=== PATIENT | female | born 1945 | race Caucasian/White ===

== ENCOUNTER → 2016-08-30 | Outpatient (REF) | payer MEDICARE ==
[2016-08-31 13:05] LABS: ALBUMIN 3.4 GM/DL (3.2-5.2); ALBUMIN/GLOBULIN RATIO 0.92 (1.00-1.93); ALKALINE PHOSPHATASE 64 U/L (45-117); ALT/SGPT 25 U/L (12-78); ANION GAP 7 MEQ/L (8-16); AST/SGOT 19 U/L (15-37); BILIRUBIN,TOTAL 0.5 MG/DL (0.2-1.0); BLOOD UREA NITROGEN 20 MG/DL (7-18); CARBON DIOXIDE LEVEL 31 MEQ/L (21-32); CHLORIDE LEVEL 104 MEQ/L (98-107); CHOLESTEROL LEVEL 154 MG/DL (<200); CREATININE FOR GFR 0.88 MG/DL (0.55-1.02); FREE T4 1.22 NG/DL (0.76-1.46); GLOMERULAR FILTRATION RATE > 60.0 (>39); GLUCOSE, FASTING 116 MG/DL (83-110); POTASSIUM SERUM 4.6 MEQ/L (3.5-5.1); SODIUM LEVEL 142 MEQ/L (136-145); TOTAL PROTEIN 7.1 GM/DL (6.4-8.2); TRIGLYCERIDES LEVEL 137 MG/DL (<150)
== END ==
LOC: M SFHCADAM 10:46
PROVIDERS: ATTEND Physician Assistant
DX: I10 Essential (primary) hypertension (principal); E03.9 Hypothyroidism, unspecified; E78.4 Other hyperlipidemia; M35.3 Polymyalgia rheumatica
CPT/HCPCS: 80053; 80061; 82306; 84439; 84443; G0463

== ENCOUNTER → 2016-12-06 | Outpatient (CLI) | payer MEDICARE ==
--- NOTE | 2016-12-06 13:17 | REP ---
LUMBOSACRAL SPINE SERIES: Five views of the lumbosacral spine are performed. There is no compression fracture. There is no spondylolysis or spondylolisthesis. There is moderate diffuse spurring. There is mild disc space narrowing at L1-2. There is moderate disc space narrowing with subchondral sclerosis and vacuum phenomenon at L3-4 and L4-5. There is mild narrowing at the L5-S1 disc space. There is sclerosis at the posterior facet joints. The posterior elements are intact. There is mild curvature toward the right. IMPRESSION: Degenerative changes as discussed in detail above. No acute fracture or dislocation. Signed by Tyler Saldivar MD 12/06/2016 04:30 P
--- NOTE | 2016-12-06 13:19 | REP ---
LEFT KNEE SERIES: Five views of the left knee are performed. There is a total knee prosthesis which appears to be in good position. There is no fracture or dislocation. I see no significant abnormal osseous lucency adjacent to the tibial or femoral prostheses. IMPRESSION: Total knee prosthesis. No significant abnormality. Signed by Tyler Saldivar MD 12/06/2016 04:30 P
--- NOTE | 2016-12-06 13:20 | REP ---
RIGHT KNEE SERIES: Five views of the right knee performed. There is no fracture or dislocation. Total knee prosthesis is noted and appears to be in good position. There is no malalignment. There is no abnormal osseous lucency in the distal femur or proximal tibia adjacent to the metallic prosthetic components. IMPRESSION: Right total knee prosthesis with no significant abnormality. Signed by Tyler Saldivar MD 12/06/2016 04:30 P
== END ==
LOC: M ADAMS 11:32
PROVIDERS: ATTEND Physician Assistant Medical
DX: M47.896 Other spondylosis, lumbar region (principal); Z96.652 Presence of left artificial knee joint; Z96.651 Presence of right artificial knee joint

== ENCOUNTER → 2016-12-19 | Outpatient (CLI) | payer MEDICARE ==
[~2016-12-19] MED LIST: GASTROGRAFIN SOLUTION 30ML (Q9963) As Ordered ONE; ISOVUE-370 76% 100ML VIAL (Q9967) As Ordered ONE
[2016-12-19 18:52] LABS: BLOOD UREA NITROGEN 23 MG/DL (7-18); CREATININE FOR GFR 0.93 MG/DL (0.55-1.02); GLOMERULAR FILTRATION RATE > 60.0 (>39)
--- NOTE | 2016-12-19 19:45 | REP ---
CT ABDOMEN AND PELVIS WITH IV CONTRAST: TECHNIQUE: Axial contrast enhanced images from the lung bases to the pubic symphysis using 100 mL Isovue 370 intravenous contrast material with multiplanar reformations. Visualized lung bases demonstrate interstitial fibrotic change. The liver demonstrates no mass. Patient has had a prior cholecystectomy. Spleen, adrenals, and pancreas appear unremarkable. The calcification is seen in the mid right renal collecting system measuring approximately 1 cm in diameter. There is a cyst in the lower pole of the right kidney measuring approximately 5.4 cm in diameter. There is no hydronephrosis bilaterally. There are moderate atherosclerotic calcifications of the abdominal aorta without aneurysm. There is no adenopathy. There is no free air or free fluid. There is sigmoid diverticulosis without acute diverticulitis. Urinary bladder is mildly distended and appears grossly unremarkable. There are degenerative changes of the spine. No anterior abdominal defects are seen. IMPRESSION: Sigmoid diverticulosis without evidence of acute diverticulitis. No free air or free fluid. No hydronephrosis. Intrarenal stone right kidney. No other evidence of acute abnormality. Signed by Tyler Saldivar MD 12/19/2016 08:24 P
== END ==
LOC: M RAD 16:38
PROVIDERS: ATTEND Physician Assistant Medical
DX: R10.32 Left lower quadrant pain (principal); K57.30 Diverticulosis of large intestine without perforation or abscess without bleeding
CPT/HCPCS: 74177; 82565; 84520; Q9963; Q9967

== ENCOUNTER → 2017-03-21 | Outpatient (REF) | payer MEDICARE ==
[~2017-03-21] MED LIST changes: +ATOR1TAB19 PO; +CALC600T31 PO; +FURO40TA2 PO; +GABA-279 PO; -GASTROGRAFIN SOLUTION 30ML (Q9963) As Ordered ONE; -ISOVUE-370 76% 100ML VIAL (Q9967) As Ordered ONE; +LEVO125T4 PO; +LISI10TA4 PO; +MULTCHW14 PO; +PRED1TABL PO; +VITA200015 PO
== END ==
LOC: M SFHCADAM 08:59
PROVIDERS: ATTEND Physician Assistant
DX: R82.99 Other abnormal findings in urine (principal); N20.0 Calculus of kidney
CPT/HCPCS: 81001; 87086; G0463

== ENCOUNTER → 2017-03-27 | Outpatient (CLI) | payer MEDICARE ==
--- NOTE | 2017-03-27 17:24 | REP ---
RENAL ULTRASOUND: Real-time sonographic evaluation of the kidneys is performed. Right kidney measures 12.2 x 6.4 x 5.4 cm and left kidney 12.0 x 6.5 x 5.9 cm. There is bilateral cortical thinning. There is no hydronephrosis. There is a cyst over the lateral aspect of the right kidney measuring 7.3 x 4.9 x 5.8 cm. Calcification is seen in the mid right renal collecting system. There is a subcentimeter cyst of the mid lateral left kidney. IMPRESSION: No hydronephrosis. Dominant cyst lower pole right kidney. Calculus mid right renal collecting system. Small cyst mid left kidney.
== END ==
LOC: M WHC 08:35
PROVIDERS: ATTEND Physician Assistant
DX: N20.0 Calculus of kidney (principal); N28.1 Cyst of kidney, acquired

== ENCOUNTER → 2017-04-25 | Outpatient (CLI) | payer MEDICARE ==
[2017-04-25 11:43] LABS: MEAN CORPUSCULAR HEMOGLOBIN 29.8 pg (27.0-33.0); MEAN CORPUSCULAR HGB CONC 31.3 g/dl (32.0-36.5); MEAN CORPUSCULAR VOLUME 95.3 fl (80.0-96.0); PLATELET COUNT, AUTOMATED 279 10^3/uL (150-450); RED CELL DISTRIBUTION WIDTH 14.9 % (11.5-14.5); WHITE BLOOD COUNT 7.9 10^3/uL (4.0-10.0)
[2017-04-25 11:55] LABS: ANION GAP 3 MEQ/L (8-16); BLOOD UREA NITROGEN 29 MG/DL (7-18); CALCIUM LEVEL 8.8 MG/DL (8.8-10.2); CARBON DIOXIDE LEVEL 34 MEQ/L (21-32); CHLORIDE LEVEL 106 MEQ/L (98-107); CREATININE FOR GFR 0.77 MG/DL (0.55-1.02); GLOMERULAR FILTRATION RATE > 60.0 (>39); GLUCOSE, FASTING 92 MG/DL (83-110); POTASSIUM SERUM 4.6 MEQ/L (3.5-5.1); SODIUM LEVEL 143 MEQ/L (136-145)
[2017-04-25 12:08] LABS: INR 0.9
--- NOTE | 2017-04-25 12:24 | REP ---
PA and lateral chest: Comparison is 10/22/2014. The lung umanzor are clear. The cardiac size is normal The fior, mediastinum, and bony thorax are unremarkable. Impression: Negative PA and lateral chest. There is no interval change. No focal Signed by Tyler Jones MD 04/25/2017 12:15 P
[2017-04-25 14:14] LABS: YEAST LIKE CELL URINE AUTO SMALL
--- NOTE | 2017-04-26 20:48 | ECGEPIP ---
Stationary ECG Study [facility] Test Date: 2017-04-25 Pat Name: DIA IVY Department: Room: - Gender: F Nursing Director: : 1945 Requested By: Ruth PACHECO Order Number: [id number] Reading MD: Joseph Newton Measurements Intervals [place] Rate: 69 P: 59 NC: 170 QRS: 28 QRSD: 102 T: 19 QT: 381 QTc: 410 Interpretive Statements SINUS RHYTHM Normal Electronically Signed On 04-26-2017 20:48:37 EDT by Joseph Newton
== END ==
LOC: M LAB 10:41
PROVIDERS: ATTEND Nurse Practitioner Women's Health
DX: Z01.818 Encounter for other preprocedural examination (principal); N20.0 Calculus of kidney; Z79.52 Long term (current) use of systemic steroids; Z79.82 Long term (current) use of aspirin; Z79.899 Other long term (current) drug therapy
CPT/HCPCS: 36415; 71020; 80048; 81001; 85027; 85610; 85730; 87086; 93005; G0463

== ENCOUNTER 2017-04-27 09:34 | Day surgery (SDC) | payer MEDICARE ==
[~2017-04-27] VITALS: Ht 160 cm; Wt 139.9 kg
[~2017-04-27 09:34] MED LIST changes: +MIDAZOLAM INJ 2 MG/2 ML VIAL (J2250) As Ordered ONE; +fentaNYL 100 MCG/2 ML INJECTION (J3010) As Ordered ONE
--- NOTE | 2017-04-27 10:34 | REP ---
KUB: Two views. HISTORY: Right-sided kidney stone. COMPARISON STUDY: CT abdomen pelvis December 19, 2016. FINDINGS: There are clips in right upper quadrant of the abdomen. The bowel gas pattern is normal. There is a triangular calcific opacity projecting at the upper pole of the right kidney measuring 13 mm in greatest diameter corresponding with the large intrarenal calculus seen on CT from December 19, 2016. No other urinary tract calculus is radiographically visible. IMPRESSION: Large intrarenal calculus upper pole region right kidney 13 mm in size. Signed by Valdo Zamarripa MD 04/27/2017 01:18 P
[2017-04-27] MEDS ORDERED: LR 1,000 ML IV ONE (12:30)
[2017-04-27] MEDS ORDERED: ONDANSETRON 4MG/2ML VIAL (J2405) As Ordered ONE (12:42)
[2017-04-27] MEDS ORDERED: PHENYLephrine HCL 500 MCG/5 ML (100MCG/ML) SYRINGE (J2370) As Ordered ONE (12:46)
[2017-04-27 14:25] VITALS: BP 144/67
--- NOTE | 2017-04-28 16:47 | RO ---
DATE OF PROCEDURE: 04/27/2017 PREPROCEDURE DIAGNOSIS: Right kidney stone. POSTPROCEDURE DIAGNOSIS: Right kidney stone. PROCEDURE: Right extracorporeal shock wave lithotripsy. SURGEON: Vincenzo Newton MD MATH SPECIALIST: None ANESTHESIA: Monitored anesthesia care (MAC). OPERATIVE INDICATIONS: This is a 71-year-old female with an approximately 1.3 cm right kidney stone. Options for treatment were discussed and she elected to undergo the above listed procedure. DESCRIPTION OF PROCEDURE: The patient was brought to the operating room and MAC anesthesia was then administered. Prophylactic antibiotics were infused. She was then placed in supine position in preparation for right-sided extracorporeal shock wave lithotripsy. Fluoroscopy was utilized to monitor stone position and fragmentation throughout the procedure. Shock waves were delivered to the stone , ungated. The stone appeared to fragment well. After 2500 shocks, the procedure was concluded. The patient was then awakened from anesthesia and transported to the recovery room in stable condition. ESTIMATED BLOOD LOSS: 0 mL. COMPLICATIONS: None. SPECIMENS: None. PLAN: The patient will followup in the clinic in a few weeks with imaging prior to assess for residual stone burden. ELSA
== END 2017-04-27 14:25 | disposition home or self-care (01) ==
LOC: M SDC 09:34
PROVIDERS: ATTEND Urology
DX: N20.0 Calculus of kidney (principal); E03.9 Hypothyroidism, unspecified; M35.3 Polymyalgia rheumatica; E78.5 Hyperlipidemia, unspecified; K57.30 Diverticulosis of large intestine without perforation or abscess without bleeding; K44.9 Diaphragmatic hernia without obstruction or gangrene; M12.9 Arthropathy, unspecified; M54.9 Dorsalgia, unspecified; R21 Rash and other nonspecific skin eruption; Z79.899 Other long term (current) drug therapy; Z90.710 Acquired absence of both cervix and uterus; Z96.653 Presence of artificial knee joint, bilateral; Z96.1 Presence of intraocular lens
CPT/HCPCS: 50590; 74000; J0690; J2250; J2370; J2405; J3010

== ENCOUNTER → 2017-05-18 | Outpatient (CLI) | payer MEDICARE ==
[~2017-05-18] MED LIST changes: -MIDAZOLAM INJ 2 MG/2 ML VIAL (J2250) As Ordered ONE; -fentaNYL 100 MCG/2 ML INJECTION (J3010) As Ordered ONE
--- NOTE | 2017-05-18 09:44 | REP ---
Clinical: Nephrolithiasis. Technique: Supine views of the abdomen and pelvis. Comparison: 04/27/2017. Findings: Multiple small right intrarenal calculi are not then identified measuring roughly up to 4 mm diameter. Further evaluation of the urinary tract system is limited by technique and interposed bowel gas. Evidence for prior cholecystectomy noted. Impression: Multiple right intrarenal calculi measuring up to 4 mm again noted. Signed by Mario Greenwood MD 05/18/2017 09:35 A
== END ==
LOC: M SMT 08:16
PROVIDERS: ATTEND Nurse Practitioner Family
DX: N20.0 Calculus of kidney (principal)

== ENCOUNTER → 2017-11-15 | Outpatient (CLI) | payer MEDICARE | LOC: M SMT 09:34 | DX: N20.0 Calculus of kidney (principal) | CPT/HCPCS: 74018; G0463 ==

== ENCOUNTER → 2017-12-19 | Outpatient (CLI) | payer MEDICARE ==
[2017-12-19 15:40] LABS: APPEARANCE, URINE HAZY (CLEAR); BACTERIA, URINE AUTO 1+ (NEGATIVE); BILIRUBIN, URINE AUTO NEGATIVE (NEGATIVE); BLOOD, URINE BLOOD NEGATIVE (NEGATIVE); COLOR, URINE YELLOW (YELLOW); GLUCOSE, URINE (UA) AUTO NEGATIVE (NEGATIVE); KETONE, URINE AUTO NEGATIVE (NEGATIVE); LEUKOCYTE ESTERASE, URINE AUTO NEGATIVE (NEGATIVE); MUCUS, URINE SMALL (NEGATIVE); NITRITE, URINE AUTO NEGATIVE (NEGATIVE); PROTEIN, URINE AUTO NEGATIVE (NEGATIVE); RBC, URINE AUTO 2 /HPF (0-3); SPECIFIC GRAVITY URINE AUTO 1.017 (1.002-1.035); SQUAMOUS EPITHELIAL CELL UR AU 13 /HPF (0-6); UROBILINOGEN, URINE AUTO 0.2 mg/dL (0.0-2.0); WBC, URINE AUTO 4 /HPF (0-3)
[2017-12-19 15:41] LABS: INR 0.91; PROTHROMBIN TIME 12.3 SECONDS (12.4-14.5)
[2017-12-19 15:42] LABS: HEMATOCRIT 44.1 % (36.0-47.0); HEMOGLOBIN 13.8 g/dl (12.0-15.5); MEAN CORPUSCULAR HEMOGLOBIN 29.6 pg (27.0-33.0); MEAN CORPUSCULAR HGB CONC 31.3 g/dl (32.0-36.5); MEAN CORPUSCULAR VOLUME 94.4 fl (80.0-96.0); PARTIAL THROMBOPLASTIN TIME 28.1 SECONDS (26.8-37.9); PLATELET COUNT, AUTOMATED 264 10^3/uL (150-450); RED BLOOD COUNT 4.67 10^6/uL (4.00-5.40); RED CELL DISTRIBUTION WIDTH 15.3 % (11.5-14.5); WHITE BLOOD COUNT 12.4 10^3/uL (4.0-10.0)
[2017-12-19 17:35] LABS: ANION GAP 9 MEQ/L (8-16); BLOOD UREA NITROGEN 24 MG/DL (7-18); CARBON DIOXIDE LEVEL 32 MEQ/L (21-32); CHLORIDE LEVEL 105 MEQ/L (98-107); CREATININE FOR GFR 1.11 MG/DL (0.55-1.30); GLOMERULAR FILTRATION RATE 51.4 (>39); GLUCOSE, FASTING 178 MG/DL (70-100); POTASSIUM SERUM 4.6 MEQ/L (3.5-5.1); SODIUM LEVEL 146 MEQ/L (136-145)
== END ==
LOC: M LAB 14:53
DX: Z01.818 Encounter for other preprocedural examination (principal); N20.0 Calculus of kidney
CPT/HCPCS: 71046

== ENCOUNTER → 2017-12-21 | Outpatient (CLI) | payer MEDICARE | LOC: M LAB 10:31 | DX: N20.0 Calculus of kidney (principal) | CPT/HCPCS: 87086 ==

== ENCOUNTER 2018-01-12 08:42 | Day surgery (SDC) | payer MEDICARE ==
[2018-01-12] MEDS ORDERED: ePHEDrine SULFATE 25 MG/5 ML(5MG/ML) SYRINGE (08:43)
[2018-01-12] MEDS: LR 1,000 ML IV (09:00)
[2018-01-12] MEDS: ceFAZolin SOD 1 GM in D5W MINI-BAG PLUS 50 ML IV (10:13)
[2018-01-12] MEDS ORDERED: MIDAZOLAM INJ 2 MG/2 ML VIAL (J2250) As Ordered (10:32)
[2018-01-12] MEDS ORDERED: ePHEDrine SULFATE 25 MG/5 ML(5MG/ML) SYRINGE As Ordered (10:32)
[2018-01-12] MEDS ORDERED: BUPIVACAINE/DEXTROSE 0.75% 2 ML AMP As Ordered (10:32)
[2018-01-12] MEDS ORDERED: fentaNYL 100 MCG/2 ML INJECTION (J3010) As Ordered (10:32)
[2018-01-12] MEDS ORDERED: PHENYLephrine HCL 500 MCG/5 ML (100MCG/ML) SYRINGE (J2370) As Ordered ×3 (10:32→11:07)
[2018-01-12] MEDS ORDERED: ONDANSETRON 4MG/2ML VIAL (J2405) As Ordered (10:32)
[2018-01-12] MEDS ORDERED: PROPOFOL 200 MG/20 ML VIAL As Ordered ×2 (10:32→10:37)
[2018-01-12] MEDS: CONRAY-60 60% 50ML VIAL (Q9961) As Ordered (11:01)
[2018-01-12] MEDS: ePHEDrine SULFATE 25 MG/5 ML(5MG/ML) SYRINGE IV ×2 (11:27→11:37)
[2018-01-12] MEDS ORDERED: fentaNYL 100 MCG/2 ML INJECTION (J3010) IV (12:00)
[2018-01-12] MEDS ORDERED: PERCOCET 5MG/325MG TAB PO ×3 (12:00)
[2018-01-12] MEDS ORDERED: LR 1,000 ML IV (12:00)
[2018-01-12] MEDS ORDERED: oxyBUTYnin 5 MG TAB PO (12:00)
[2018-01-12] MEDS ORDERED: HYDROMORPHONE HCL 0.5 MG/ 0.5 ML SYRINGE (J1170 PER 1) IV (12:00)
[2018-01-12] MEDS ORDERED: ONDANSETRON 4MG/2ML VIAL (J2405) IV (12:00)
== END 2018-01-12 14:30 | disposition home or self-care (01) ==
LOC: M SDC 08:42
DX: N20.0 Calculus of kidney (principal); I10 Essential (primary) hypertension; K21.9 Gastro-esophageal reflux disease without esophagitis; E03.9 Hypothyroidism, unspecified; Z79.899 Other long term (current) drug therapy
CPT/HCPCS: 52356

== ENCOUNTER → 2018-05-21 | Outpatient (CLI) | payer MEDICARE ==
[2018-05-21 13:50] LABS: AMORPHOUS SEDIMENT LARGE (NEGATIVE); APPEARANCE, URINE TURBID (CLEAR); BACTERIA, URINE AUTO 1+ (NEGATIVE); BILIRUBIN, URINE AUTO NEGATIVE (NEGATIVE); BLOOD, URINE BLOOD 2+ (NEGATIVE); COLOR, URINE AMBER (YELLOW); GLUCOSE, URINE (UA) AUTO NEGATIVE (NEGATIVE); KETONE, URINE AUTO NEGATIVE (NEGATIVE); LEUKOCYTE ESTERASE, URINE AUTO 3+ (NEGATIVE); MUCUS, URINE SMALL (NEGATIVE); NITRITE, URINE AUTO NEGATIVE (NEGATIVE); PROTEIN, URINE AUTO NEGATIVE (NEGATIVE); RBC, URINE AUTO 27 /HPF (0-3); SPECIFIC GRAVITY URINE AUTO 1.025 (1.002-1.035); SQUAMOUS EPITHELIAL CELL UR AU 5 /HPF (0-6); UROBILINOGEN, URINE AUTO 0.2 mg/dL (0.0-2.0); WBC, URINE AUTO 49 /HPF (0-3)
== END ==
LOC: M SMT 09:22
DX: R82.90 Unspecified abnormal findings in urine (principal); N20.0 Calculus of kidney; Z90.49 Acquired absence of other specified parts of digestive tract
CPT/HCPCS: 81001

== ENCOUNTER → 2018-05-23 | Outpatient (CLI) | payer MEDICARE ==
[2018-05-23 13:20] LABS: ANION GAP 5 MEQ/L (8-16); BLOOD UREA NITROGEN 17 MG/DL (7-18); CALCIUM LEVEL 8.9 MG/DL (8.8-10.2); CARBON DIOXIDE LEVEL 32 MEQ/L (21-32); CHLORIDE LEVEL 105 MEQ/L (98-107); CREATININE FOR GFR 0.89 MG/DL (0.55-1.30); GLOMERULAR FILTRATION RATE > 60.0 (>39); GLUCOSE, FASTING 133 MG/DL (70-100); POTASSIUM SERUM 4.9 MEQ/L (3.5-5.1); SODIUM LEVEL 142 MEQ/L (136-145)
== END ==
LOC: M SMT 09:49
DX: R31.29 Other microscopic hematuria (principal)
CPT/HCPCS: 80048

== ENCOUNTER → 2018-05-31 | Outpatient (CLI) | payer MEDICARE ==
[~2018-05-31] MED LIST changes: -ATOR1TAB19 PO; -CALC600T31 PO; -FURO40TA2 PO; -GABA-279 PO; +ISOVUE-370 76% 100ML VIAL (Q9967) As Ordered; -LEVO125T4 PO; -LISI10TA4 PO; -MULTCHW14 PO; -PRED1TABL PO; -VITA200015 PO
== END ==
LOC: M RAD 16:23
DX: N28.1 Cyst of kidney, acquired (principal); N20.0 Calculus of kidney; N26.1 Atrophy of kidney (terminal); K57.30 Diverticulosis of large intestine without perforation or abscess without bleeding; R31.29 Other microscopic hematuria
CPT/HCPCS: Q9967

== ENCOUNTER → 2018-06-06 | Outpatient (REF) | payer MEDICARE ==
[2018-06-06 16:18] LABS: APPEARANCE, URINE CLEAR (CLEAR); BACTERIA, URINE AUTO NEGATIVE (NEGATIVE); BILIRUBIN, URINE AUTO NEGATIVE (NEGATIVE); BLOOD, URINE BLOOD NEGATIVE (NEGATIVE); COLOR, URINE STRAW (YELLOW); GLUCOSE, URINE (UA) AUTO NEGATIVE (NEGATIVE); KETONE, URINE AUTO NEGATIVE (NEGATIVE); LEUKOCYTE ESTERASE, URINE AUTO TRACE (NEGATIVE); NITRITE, URINE AUTO NEGATIVE (NEGATIVE); PROTEIN, URINE AUTO NEGATIVE (NEGATIVE); RBC, URINE AUTO 1 /HPF (0-3); SPECIFIC GRAVITY URINE AUTO 1.006 (1.002-1.035); SQUAMOUS EPITHELIAL CELL UR AU 0 /HPF (0-6); UROBILINOGEN, URINE AUTO 0.2 mg/dL (0.0-2.0); WBC, URINE AUTO 2 /HPF (0-3)
== END ==
LOC: M SMT 15:54
DX: R31.29 Other microscopic hematuria (principal)
CPT/HCPCS: 81001

== ENCOUNTER → 2018-10-12 | Outpatient (REF) | payer MEDICARE ==
[~2018-10-12] MED LIST changes: +ALEV220T26 PO; +ATOR1TAB19 PO; +CALC600T31 PO; +FURO40TA2 PO; +GABA-1171 PO; +HYDR1CRE TOP; -ISOVUE-370 76% 100ML VIAL (Q9967) As Ordered; +LEVO125T4 PO; +LISI10TA4 PO; +MULTCHW14 PO; +NAPR-885 PO; +PRED10PA PO; +PRED1TABL PO; +VITA100T51 PO; +VITA200015 PO
== END ==
LOC: M SFHCADAM 17:03
PROVIDERS: ATTEND Physician Assistant
DX: I11.0 Hypertensive heart disease with heart failure (principal); E03.9 Hypothyroidism, unspecified; R05 Cough; I50.32 Chronic diastolic (congestive) heart failure; E78.49 Other hyperlipidemia; Z53.8 Procedure and treatment not carried out for other reasons

== ENCOUNTER → 2018-10-13 | Outpatient (REF) | payer MEDICARE ==
[2018-10-13 19:40] LABS: HEMATOCRIT 40.5 % (36.0-47.0); HEMOGLOBIN 12.3 g/dl (12.0-15.5); MEAN CORPUSCULAR HEMOGLOBIN 28.9 pg (27.0-33.0); MEAN CORPUSCULAR HGB CONC 30.4 g/dl (32.0-36.5); MEAN CORPUSCULAR VOLUME 95.3 fl (80.0-96.0); PLATELET COUNT, AUTOMATED 294 10^3/uL (150-450); RED BLOOD COUNT 4.25 10^6/uL (4.00-5.40); WHITE BLOOD COUNT 10.3 10^3/uL (4.0-10.0)
[2018-10-13 20:09] LABS: ALBUMIN 3.3 GM/DL (3.2-5.2); ALT/SGPT 25 U/L (12-78); BILIRUBIN,TOTAL 0.5 MG/DL (0.2-1.0); BLOOD UREA NITROGEN 23 MG/DL (7-18); CALCIUM LEVEL 8.9 MG/DL (8.8-10.2); CARBON DIOXIDE LEVEL 31 MEQ/L (21-32); CHLORIDE LEVEL 106 MEQ/L (98-107); CHOLESTEROL LEVEL 206 MG/DL (<200); CHOLESTEROL RISK RATIO 3.614 (<5); CREATININE FOR GFR 0.82 MG/DL (0.55-1.30); FREE T4 1.18 NG/DL (0.76-1.46); GLOMERULAR FILTRATION RATE > 60.0 (>39); GLUCOSE, FASTING 105 MG/DL (70-100); HDL CHOLESTEROL 57 MG/DL (>40); LDL CHOLESTEROL 118 MG/DL (<100); NON-HDL-C 149 MG/DL; POTASSIUM SERUM 4.7 MEQ/L (3.5-5.1); SODIUM LEVEL 144 MEQ/L (136-145); TOTAL PROTEIN 6.8 GM/DL (6.4-8.2); TRIGLYCERIDES LEVEL 156 MG/DL (<150)
== END ==
LOC: M SFHCADAM 10:00
PROVIDERS: ATTEND Physician Assistant
DX: I11.0 Hypertensive heart disease with heart failure (principal); E03.9 Hypothyroidism, unspecified; R05 Cough; I50.32 Chronic diastolic (congestive) heart failure; E78.49 Other hyperlipidemia

== ENCOUNTER → 2018-12-05 | Outpatient (REF) | payer MEDICARE ==
[~2018-12-05] MED LIST changes: +FISH1000 PO; +IRBE75TA5 PO; +MULT-40 PO; +SYST1SOL4 OU
[2018-12-05 13:20] LABS: APPEARANCE, URINE HAZY (CLEAR); BACTERIA, URINE AUTO 2+ (NEGATIVE); BILIRUBIN, URINE AUTO NEGATIVE (NEGATIVE); BLOOD, URINE BLOOD 1+ (NEGATIVE); COLOR, URINE YELLOW (YELLOW); GLUCOSE, URINE (UA) AUTO NEGATIVE (NEGATIVE); KETONE, URINE AUTO NEGATIVE (NEGATIVE); LEUKOCYTE ESTERASE, URINE AUTO 3+ (NEGATIVE); MUCUS, URINE SMALL (NEGATIVE); NITRITE, URINE AUTO NEGATIVE (NEGATIVE); PROTEIN, URINE AUTO NEGATIVE (NEGATIVE); RBC, URINE AUTO 3 /HPF (0-3); SQUAMOUS EPITHELIAL CELL UR AU 12 /HPF (0-6); UROBILINOGEN, URINE AUTO 0.2 mg/dL (0.0-2.0); WBC, URINE AUTO 14 /HPF (0-3)
== END ==
LOC: M SMT 13:08
PROVIDERS: ATTEND Urology
DX: R10.30 Lower abdominal pain, unspecified (principal)

== ENCOUNTER → 2018-12-06 | Outpatient (REF) | payer MEDICARE | LOC: M LABSMT 10:50 → M LABDRWAD 10:51 | PROVIDERS: ATTEND Urology | DX: N39.0 Urinary tract infection, site not specified (principal) ==

== ENCOUNTER 2018-12-19 12:00 | Day surgery (SDC) | payer MEDICARE ==
[~2018-12-19] VITALS: Ht 157.5 cm; Wt 138.3 kg
[~2018-12-19 12:00] MED LIST changes: +NS 1,000 ML IV ONE
[2018-12-19] MEDS ORDERED: LIDOCAINE 2% INJ 100 MG/5 ML SDV (FOR ANES.) As Ordered ONE (13:26)
[2018-12-19] MEDS ORDERED: PROPOFOL 200 MG/20 ML VIAL As Ordered ONE (13:26)
--- NOTE | 2018-12-19 14:14 | ROOR ---
Patient Name: Charlotte Titus Procedure Date: 12/19/2018 1:48 PM Date of : 1945 Age: 73 Room: [facility] Gender: Female Note Status: Finalized Procedure: Total Colonoscopy to Cecum Indications: High risk colon cancer surveillance: Personal history of colonic polyps, Last colonoscopy: 2014 Providers: Jovan Sears MD Referring MD: CATRACHITO Lozano Requesting Provider: Medicines: Monitored Anesthesia Care Complications: No immediate complications. Procedure: Pre-Anesthesia Assessment: - The heart rate, respiratory rate, oxygen saturations, blood pressure, adequacy of pulmonary ventilation, and response to care were monitored throughout the procedure. The Colonoscope was introduced through the anus and advanced to the cecum, identified by appendiceal orifice and ileocecal valve. The Colonoscope was introduced through the and advanced to. The colonoscopy was performed without difficulty. The patient tolerated the procedure well. The quality of the bowel preparation was excellent. Findings: The perianal and digital rectal examinations were normal. Non-bleeding internal hemorrhoids were found during retroflexion. The hemorrhoids were small and Grade I (internal hemorrhoids that do not prolapse). Multiple small and large-mouthed diverticula were found in the recto-sigmoid colon, sigmoid colon and descending colon. The exam was otherwise without abnormality on direct and retroflexion views. Impression: - Non-bleeding internal hemorrhoids. - Diverticulosis in the recto-sigmoid colon, in the sigmoid colon and in the descending colon. - The examination was otherwise normal on direct and retroflexion views. - No specimens collected. - The exam was otherwise normal to the cecum. Recommendation: - Patient has a contact number available for emergencies. The signs and symptoms of potential delayed complications were discussed with the patient. Return to normal activities tomorrow. Written discharge instructions were provided to the patient. - High fiber diet. - Discharge patient to home. - Continue present medications. - Repeat colonoscopy for symptoms only. - Return to referring physician. - The findings and recommendations were discussed with the patient's family. Jovan Sears MD Jovan Sears MD 12/19/2018 2:14:18 PM Electronically signed by Jovan Sears MD Number of Addenda: 0 Note Initiated On: 12/19/2018 1:48 PM Estimated Blood Loss: Estimated blood loss: none.
[2018-12-19 14:30] VITALS: BP 138/70
== END 2018-12-19 14:38 | disposition home or self-care (01) ==
LOC: M OPP 12:00
PROVIDERS: ATTEND Internal Medicine Gastroenterology
DX: K64.0 First degree hemorrhoids (principal); K57.30 Diverticulosis of large intestine without perforation or abscess without bleeding; Z86.010 Personal history of colon polyps

== ENCOUNTER → 2019-01-10 | Outpatient (CLI) | payer MEDICARE ==
[~2019-01-10] MED LIST changes: -NS 1,000 ML IV ONE
--- NOTE | 2019-01-10 14:25 | REP ---
KUB ABDOMEN AND PELVIS: Two KUB films of the abdomen and pelvis are performed. Bowel gas pattern is normal with no evidence of bowel obstruction. No definite renal or ureteral calculus is seen radiographically. Metallic clips are seen in the right upper quadrant status post cholecystectomy. There are degenerative changes of the thoracolumbar spine. IMPRESSION: No evidence of bowel obstruction. No definite radiographic evidence of renal or ureteral calculus. Electronically Signed by Tyler Saldivar MD 01/12/2019 10:19 A
== END ==
LOC: M SMT 10:39
PROVIDERS: ATTEND Nurse Practitioner Family
DX: N20.0 Calculus of kidney (principal)
CPT/HCPCS: 74018; G0463

== ENCOUNTER → 2019-03-17 | Outpatient (REF) | payer MEDICARE | LOC: M LAB REF 14:52 | PROVIDERS: ATTEND Physician Assistant | DX: N10 Acute pyelonephritis (principal) ==

== ENCOUNTER → 2019-03-19 | Outpatient (CLI) | payer MEDICARE ==
--- NOTE | 2019-03-19 18:56 | REP ---
RENAL ULTRASOUND: Real-time sonographic evaluation of the kidneys are performed. Kidneys are normal in size and echo texture, right kidney measuring 12.6 x 6.9 x 5.6 cm and left kidney 11.8 x 5.4 x 6.0 cm. There is no hydronephrosis bilaterally. Right lower pole cyst is exophytic and measures 5.9 x 3.8 x 4.3 cm. Small cyst in the mid to lower aspect of the left kidney measures 9 mm. There is bilateral cortical thinning. With Doppler color evaluation of bilateral ureteral jets seen in the urinary bladder bilaterally. IMPRESSION: No hydronephrosis. There is a cyst of each kidney as discussed above. Electronically Signed by Tyler Saldivar MD 03/21/2019 04:35 P
== END ==
LOC: M RAD 09:59
PROVIDERS: ATTEND Physician Assistant
DX: N28.1 Cyst of kidney, acquired (principal)

== ENCOUNTER → 2019-05-08 | Outpatient (REF) | payer MEDICARE ==
[2019-05-08 19:26] LABS: FOLATE > 24.0 NG/ML; VITAMIN B12 LEVEL 865 PG/ML
== END ==
LOC: M SFHCADAM 16:43
PROVIDERS: ATTEND Physician Assistant
DX: G62.9 Polyneuropathy, unspecified (principal)
CPT/HCPCS: 82607; 82746; G0463

== ENCOUNTER → 2019-11-28 | Outpatient (REF) | payer MEDICARE ==
[~2019-11-28] MED LIST changes: +IRBE75TA4 PO; -IRBE75TA5 PO
== END ==
LOC: M LAB REF 08:31
PROVIDERS: ATTEND Dermatology
DX: L57.0 Actinic keratosis (principal); L57.8 Other skin changes due to chronic exposure to nonionizing radiation

== ENCOUNTER 2019-12-05 08:27 | Outpatient (RCR) | payer MEDICARE | END 2019-12-31 | LOC: M PT 08:27 | PROVIDERS: ATTEND Dermatology | DX: R60.0 Localized edema (principal) ==

== ENCOUNTER → 2020-02-20 | Outpatient (REF) | payer MEDICARE ==
[2020-02-20 14:44] LABS: HEMATOCRIT 40.2 % (36.0-47.0); HEMOGLOBIN 12.6 g/dl (12.0-15.5); MEAN CORPUSCULAR HEMOGLOBIN 32.1 pg (27.0-33.0); MEAN CORPUSCULAR HGB CONC 31.3 g/dl (32.0-36.5); MEAN CORPUSCULAR VOLUME 102.3 fl (80.0-96.0); PLATELET COUNT, AUTOMATED 273 10^3/uL (150-450); RED BLOOD COUNT 3.93 10^6/uL (4.00-5.40); WHITE BLOOD COUNT 8.4 10^3/uL (4.0-10.0)
[2020-02-20 15:40] LABS: ALBUMIN 3.6 GM/DL (3.2-5.2); ALT/SGPT 32 U/L (12-78); BILIRUBIN,TOTAL 0.5 MG/DL (0.2-1.0); BLOOD UREA NITROGEN 26 MG/DL (7-18); CALCIUM LEVEL 9.8 MG/DL (8.8-10.2); CARBON DIOXIDE LEVEL 29 MEQ/L (21-32); CHLORIDE LEVEL 107 MEQ/L (98-107); CHOLESTEROL LEVEL 204 MG/DL (<200); CREATININE FOR GFR 0.89 MG/DL (0.55-1.30); CREATININE, URINE 37.8 MG/DL; GLOMERULAR FILTRATION RATE > 60.0 (>39); GLUCOSE, FASTING 101 MG/DL (70-100); HDL CHOLESTEROL 47 MG/DL (>40); LDL CHOLESTEROL 130 MG/DL (<100); MAU/CREAT RATIO 23.8 MCG/MG (0.0-30.0); NON-HDL-C 157 MG/DL; POTASSIUM SERUM 4.8 MEQ/L (3.5-5.1); SODIUM LEVEL 141 MEQ/L (136-145); TOTAL PROTEIN 7.3 GM/DL (6.4-8.2); TRIGLYCERIDES LEVEL 137 MG/DL (<150)
[2020-02-20 17:06] LABS: HEMOGLOBIN A1c 5.5 %
== END ==
LOC: M SFHCADAM 13:38
PROVIDERS: ATTEND Physician Assistant
DX: I11.9 Hypertensive heart disease without heart failure (principal); E78.5 Hyperlipidemia, unspecified; E03.8 Other specified hypothyroidism; G61.82 Multifocal motor neuropathy
CPT/HCPCS: 36415; 80053; 80061; 82043; 83036; 84443; 85027; G0463

== ENCOUNTER → 2020-07-20 | Outpatient (REF) | payer MEDICARE ==
[~2020-07-20] MED LIST changes: +LISI10TA22 PO; -LISI10TA4 PO
[2020-07-20 12:58] LABS: BASO % 0.4 % (0.0-1.0); EOS # 0.1 10^3/uL (0.0-0.5); EOS % 1.2 % (0.0-3.0); HEMATOCRIT 40.7 % (36.0-47.0); HEMOGLOBIN 12.3 g/dl (12.0-15.5); LYMPH # 2.7 10^3/uL (1.5-5.0); LYMPH % 25.8 % (24.0-44.0); MEAN CORPUSCULAR HGB CONC 30.2 g/dl (32.0-36.5); MEAN CORPUSCULAR VOLUME 102.5 fl (80.0-96.0); MONO # 0.7 10^3/uL (0.0-0.8); MONO % 6.6 % (0.0-5.0); NEUTROPHILS # 6.8 10^3/uL (1.5-8.5); NEUTROPHILS % 65.4 % (36.0-66.0); PLATELET COUNT, AUTOMATED 282 10^3/uL (150-450); RED BLOOD COUNT 3.97 10^6/uL (4.00-5.40); WHITE BLOOD COUNT 10.5 10^3/uL (4.0-10.0)
[2020-07-20 13:32] LABS: ALBUMIN 3.1 GM/DL (3.2-5.2); ALT/SGPT 22 U/L (12-78); C REACTIVE PROTEIN QUANTITATIV 2.78 MG/DL (0.00-0.30); CREATININE FOR GFR 0.81 MG/DL (0.55-1.30); GLOMERULAR FILTRATION RATE > 60.0 (>39)
[2020-07-20 13:51] LABS: ERYTHROCYTE SEDIMENTATION RATE 59 mm/hr (0-30)
== END ==
LOC: M LABDRWAD 12:28
PROVIDERS: ATTEND Physician Assistant
DX: M35.3 Polymyalgia rheumatica (principal); Z79.899 Other long term (current) drug therapy; Z79.52 Long term (current) use of systemic steroids

== ENCOUNTER → 2020-09-24 | Outpatient (REF) | payer MEDICARE ==
[2020-09-24 13:05] LABS: HEMATOCRIT 38.8 % (36.0-47.0); HEMOGLOBIN 11.9 g/dl (12.0-15.5); MEAN CORPUSCULAR HEMOGLOBIN 31.7 pg (27.0-33.0); MEAN CORPUSCULAR HGB CONC 30.7 g/dl (32.0-36.5); MEAN CORPUSCULAR VOLUME 103.5 fl (80.0-96.0); PLATELET COUNT, AUTOMATED 271 10^3/uL (150-450); RED BLOOD COUNT 3.75 10^6/uL (4.00-5.40); WHITE BLOOD COUNT 9.7 10^3/uL (4.0-10.0)
[2020-09-24 13:40] LABS: ALBUMIN 3.4 GM/DL (3.2-5.2); ALT/SGPT 24 U/L (12-78); BILIRUBIN,TOTAL 0.3 MG/DL (0.2-1.0); BLOOD UREA NITROGEN 22 MG/DL (7-18); CALCIUM LEVEL 9.4 MG/DL (8.8-10.2); CARBON DIOXIDE LEVEL 31 MEQ/L (21-32); CHLORIDE LEVEL 107 MEQ/L (98-107); FREE T4 1.16 NG/DL (0.76-1.46); GLOMERULAR FILTRATION RATE > 60.0 (>39); GLUCOSE, FASTING 97 MG/DL (70-100); POTASSIUM SERUM 4.1 MEQ/L (3.5-5.1); SODIUM LEVEL 144 MEQ/L (136-145); TOTAL PROTEIN 6.7 GM/DL (6.4-8.2)
== END ==
LOC: M SFHCADAM 09:38
PROVIDERS: ATTEND Physician Assistant
DX: E78.00 Pure hypercholesterolemia, unspecified (principal); R06.00 Dyspnea, unspecified; E03.9 Hypothyroidism, unspecified

== ENCOUNTER → 2020-10-13 | Outpatient (CLI) | payer MEDICARE ==
[2020-10-13 13:35] LABS: FOLATE > 24.0 NG/ML; TOTAL PROTEIN 6.9 GM/DL (6.4-8.2); VITAMIN B12 LEVEL 654 PG/ML
[2020-10-13 14:09] LABS: HEMOGLOBIN A1c 5.7 %
[2020-10-15 10:27] LABS: ALBUMIN 3.62 GM/DL (3.29-5.55); ALBUMIN % 52.4 % (55.8-66.1); ALPHA-1-GLOBULIN % 5.8 % (2.9-4.9); ALPHA-2-GLOBULINS 1.01 GM/DL (0.42-0.99); ALPHA-2-GLOBULINS % 14.6 % (7.1-11.8); BETA-1-GLOBULINS 0.48 GM/DL (0.28-0.60); BETA-2-GLOBULINS 0.54 GM/DL (0.19-0.55); BETA-2-GLOBULINS % 7.8 % (3.2-6.5); GAMMA GLOBULIN % 12.4 % (11.1-18.8); GAMMA GLOBULINS 0.86 GM/DL (0.65-1.58)
== END ==
LOC: M LABDRWAD 09:40
PROVIDERS: ATTEND Psychiatry & Neurology Neurology
DX: E11.9 Type 2 diabetes mellitus without complications (principal)

== ENCOUNTER → 2020-11-05 | Outpatient (CLI) | payer MEDICARE ==
--- NOTE | 2020-11-05 10:35 | REP ---
INDICATION: JANSEN COMPARISON: 12/19/2017. TECHNIQUE: PA/Lateral FINDINGS: Lungs: Clear, no infiltrate. Heart: Normal in size. Mediastinum: There is calcification of the thoracic aorta. The mediastinal silhouette is unchanged. Pleural angles: Unremarkable.. Bones and soft tissues: There are degenerative changes of the spine without compression deformity. IMPRESSION: No acute pulmonary disease. <Electronically signed by Tyler Saldivar > 11/05/20 [id number]
== END ==
LOC: M ADAMS 09:05
PROVIDERS: ATTEND Physician Assistant
DX: R06.00 Dyspnea, unspecified (principal)

== ENCOUNTER → 2020-11-05 | Outpatient (REF) | payer MEDICARE | LOC: M SFHCADAM 09:00 | PROVIDERS: ATTEND Physician Assistant | DX: K59.00 Constipation, unspecified (principal); R06.00 Dyspnea, unspecified | CPT/HCPCS: 71046; 87040; G0463 ==

== ENCOUNTER → 2021-09-03 | Outpatient (CLI) | payer MEDICARE ==
[~2021-09-03] MED LIST changes: +CLOT1CRE56 TOP; +FOLI1TAB11 PO; +METH2.5T48 PO; +MIRA3350 PO; +NEUR100C PO; +TAMS1CAP17 PO; +TERB1CRE2 TOP; +TERB250T91 PO; +VITA200030 PO
[2021-09-03 17:23] LABS: APPEARANCE, URINE TURBID (CLEAR); BACTERIA, URINE AUTO 1+ (NEGATIVE); BILIRUBIN, URINE AUTO NEGATIVE (NEGATIVE); BLOOD, URINE BLOOD 2+ (NEGATIVE); CALCIUM OXALATE CRYSTALS LARGE; COLOR, URINE AMBER (YELLOW); GLUCOSE, URINE (UA) AUTO NEGATIVE (NEGATIVE); KETONE, URINE AUTO NEGATIVE (NEGATIVE); LEUKOCYTE ESTERASE, URINE AUTO 1+ (NEGATIVE); MUCUS, URINE SMALL (NEGATIVE); NITRITE, URINE AUTO NEGATIVE (NEGATIVE); PROTEIN, URINE AUTO 1+ mg/dL (NEGATIVE); RBC, URINE AUTO 23 /HPF (0-3); SPECIFIC GRAVITY URINE AUTO 1.019 (1.002-1.035); SQUAMOUS EPITHELIAL CELL UR AU 11 /HPF (0-6); UROBILINOGEN, URINE AUTO 0.2 mg/dL (0.0-2.0); WBC, URINE AUTO 24 /HPF (0-3)
== END ==
LOC: M PLAIMG 12:17
PROVIDERS: ATTEND Physician Assistant
DX: N20.0 Calculus of kidney (principal); R31.9 Hematuria, unspecified

== ENCOUNTER → 2021-09-10 | Outpatient (CLI) | payer MEDICARE ==
[~2021-09-10] MED LIST changes: -CLOT1CRE56 TOP; -FOLI1TAB11 PO; -METH2.5T48 PO; -MIRA3350 PO; -NEUR100C PO; -TAMS1CAP17 PO; -TERB1CRE2 TOP; -TERB250T91 PO; -VITA200030 PO
== END ==
LOC: M RAD 12:33
PROVIDERS: ATTEND Physician Assistant
DX: N20.0 Calculus of kidney (principal); R31.29 Other microscopic hematuria; N28.1 Cyst of kidney, acquired

== ENCOUNTER → 2021-09-16 | Outpatient (CLI) | payer MEDICARE ==
[2021-09-16 15:26] LABS: ALBUMIN 3.4 GM/DL (3.2-5.2); BILIRUBIN,TOTAL 0.4 MG/DL (0.2-1.0); CALCIUM LEVEL 9.7 MG/DL (8.8-10.2); CHOLESTEROL RISK RATIO 3.762 (<5); GLOMERULAR FILTRATION RATE 57.4 (>39); POTASSIUM SERUM 4.2 MEQ/L (3.5-5.1); TOTAL PROTEIN 6.9 GM/DL (6.4-8.2)
[2021-09-16 16:57] LABS: BASO # 0.1 10^3/uL (0.0-0.2); BASO % 0.5 % (0.0-1.0); EOS # 0.1 10^3/uL (0.0-0.5); EOS % 0.9 % (0.0-3.0); HEMATOCRIT 38.9 % (36.0-47.0); HEMOGLOBIN 12.3 g/dl (12.0-15.5); LYMPH # 1.9 10^3/uL (1.5-5.0); MEAN CORPUSCULAR HEMOGLOBIN 31.4 pg (27.0-33.0); MEAN CORPUSCULAR HGB CONC 31.6 g/dl (32.0-36.5); MEAN CORPUSCULAR VOLUME 99.2 fl (80.0-96.0); MONO # 0.8 10^3/uL (0.0-0.8); MONO % 7.1 % (2.0-8.0); NEUTROPHILS # 8.2 10^3/uL (1.5-8.5); PLATELET COUNT, AUTOMATED 296 10^3/uL (150-450); RED BLOOD COUNT 3.92 10^6/uL (4.00-5.40); WHITE BLOOD COUNT 11.1 10^3/uL (4.0-10.0)
== END ==
LOC: M PLAIMG 12:35 → M PLALAB 12:35
PROVIDERS: ATTEND Physician Assistant
DX: E78.5 Hyperlipidemia, unspecified (principal); R10.32 Left lower quadrant pain; N20.0 Calculus of kidney

== ENCOUNTER → 2021-09-16 | Outpatient (CLI) | payer MEDICARE ==
[2021-09-16 17:31] LABS: AMORPHOUS SEDIMENT SMALL (NEGATIVE); APPEARANCE, URINE TURBID (CLEAR); BACTERIA, URINE AUTO 1+ (NEGATIVE); BILIRUBIN, URINE AUTO NEGATIVE (NEGATIVE); BLOOD, URINE BLOOD NEGATIVE (NEGATIVE); CALCIUM OXALATE CRYSTALS MODERATE; COLOR, URINE AMBER (YELLOW); GLUCOSE, URINE (UA) AUTO NEGATIVE (NEGATIVE); KETONE, URINE AUTO NEGATIVE (NEGATIVE); LEUKOCYTE ESTERASE, URINE AUTO 1+ (NEGATIVE); MUCUS, URINE SMALL (NEGATIVE); NITRITE, URINE AUTO NEGATIVE (NEGATIVE); PROTEIN, URINE AUTO 1+ mg/dL (NEGATIVE); RBC, URINE AUTO 16 /HPF (0-3); SPECIFIC GRAVITY URINE AUTO 1.019 (1.002-1.035); SQUAMOUS EPITHELIAL CELL UR AU 7 /HPF (0-6); URIC ACID CRYSTALS SMALL; UROBILINOGEN, URINE AUTO 0.2 mg/dL (0.0-2.0); WBC, URINE AUTO 18 /HPF (0-3)
== END ==
LOC: M PLALAB 12:32
PROVIDERS: ATTEND Physician Assistant
DX: R10.32 Left lower quadrant pain (principal); N20.0 Calculus of kidney

== ENCOUNTER → 2021-09-17 | Outpatient (CLI) | payer MEDICARE ==
[~2021-09-17] MED LIST changes: +GASTROGRAFIN SOLUTION 30ML (Q9963) As Ordered ONE; +ISOVUE-370 76% 100ML VIAL As Ordered ONE
== END ==
LOC: M RAD 09-16 14:07
PROVIDERS: ATTEND Physician Assistant
DX: R10.32 Left lower quadrant pain (principal)
CPT/HCPCS: 74177; Q9963; Q9967

== ENCOUNTER → 2021-09-24 | Outpatient (CLI) | payer MEDICARE ==
[~2021-09-24] MED LIST changes: -GASTROGRAFIN SOLUTION 30ML (Q9963) As Ordered ONE; -ISOVUE-370 76% 100ML VIAL As Ordered ONE
== END ==
LOC: M LABSMTC 09:11
PROVIDERS: ATTEND Anesthesiology
DX: Z01.818 Encounter for other preprocedural examination (principal); Z20.822 Contact with and (suspected) exposure to COVID-19

== ENCOUNTER 2021-09-29 14:45 | Day surgery (SDC) | payer MEDICARE ==
[~2021-09-29] VITALS: Ht 160 cm; Wt 133.8 kg
[~2021-09-29 14:45] MED LIST changes: +CLOT1CRE56 TOP; +FOLI1TAB11 PO; +LR 1,000 ML IV ONE; +METH2.5T48 PO; +MIRA3350 PO; +NEUR100C PO; +TAMS1CAP17 PO; +TERB1CRE2 TOP; +TERB250T91 PO; +VITA200030 PO
[2021-09-29] MEDS ORDERED: ceFAZolin SOD 2 GM in IV 1 EA IV ONE (16:15)
[2021-09-29] MEDS ORDERED: ceFAZolin SOD 1 GM in D5W MINI-BAG PLUS 50 ML IV ONE (16:15)
[2021-09-29] MEDS ORDERED: propofoL 200 MG/20 ML VIAL As Ordered ONE (16:26)
[2021-09-29] MEDS ORDERED: LIDOCAINE 2% 100MG/5ML SDV (FOR ANES.) As Ordered ONE (16:26)
[2021-09-29] MEDS ORDERED: ONDANSETRON 4MG/2ML VIAL As Ordered ONE ×2 (16:26→19:35)
[2021-09-29] MEDS ORDERED: ACETAMINOPHEN 1000MG 100ML IV BTL (OFIRMEV) (J0131 PER 10MG) As Ordered ONE (16:26)
[2021-09-29] MEDS ORDERED: dexameTHASONE 4 MG/ML 1ML VIAL (J1100 PER 1MG) As Ordered ONE ×2 (16:26→19:35)
[2021-09-29] MEDS ORDERED: fentaNYL 100 MCG/2 ML INJECTION As Ordered ONE (16:27)
[2021-09-29] MEDS ORDERED: MIDAZOLAM INJ 2MG/2ML VIAL (J2250 PER 1MG) As Ordered ONE (16:27)
[2021-09-29] MEDS ORDERED: ROCURONIUM BROMIDE 50 MG/5 ML VIAL As Ordered ONE (16:52)
[2021-09-29] MEDS ORDERED: SUGAMMADEX SODIUM 500 MG/5 ML VIAL (BRIDION) As Ordered ONE (16:52)
[2021-09-29] MEDS ORDERED: CONRAY-60 60% 50ML VIAL (Q9961) As Ordered ONE (17:28)
[2021-09-29] MEDS ORDERED: SCOPOLAMINE 1MG TRANSDERMAL PATCH TOP ONE (17:30)
[2021-09-29] MEDS ORDERED: ePHEDrine SULFATE 25 MG/5 ML(5MG/ML) SYRINGE As Ordered ONE (17:51)
[2021-09-29] MEDS ORDERED: PHENYLephrine 500MCG 5ML (100MCG/ML) SYRINGE As Ordered ONE (17:52)
[2021-09-29] MEDS ORDERED: KETOROLAC 60MG 2ML VIAL As Ordered ONE (19:35)
[2021-09-29] MEDS ORDERED: KETOROLAC 30 MG/ML 1ML VIAL IV PRN (19:48)
[2021-09-29] MEDS ORDERED: BACT800T5 PO (20:07)
[2021-09-29] MEDS ORDERED: TAMS1CAP17 PO (20:07)
[2021-09-29] MEDS ORDERED: HYDROMORPHONE HCL 0.5 MG/ 0.5 ML SYRINGE (J1170 PER 1) IV PRN (20:20)
[2021-09-29] MEDS ORDERED: LR 1,000 ML IV SCH (20:20)
[2021-09-29] MEDS ORDERED: oxyCODONE 5MG TAB PO PRN (20:20)
[2021-09-29] MEDS ORDERED: PERCOCET 5MG/325MG TAB PO PRN (20:20)
[2021-09-29] MEDS ORDERED: fentaNYL 100 MCG/2 ML INJECTION IV PRN (20:20)
[2021-09-29] MEDS ORDERED: ONDANSETRON 4MG/2ML VIAL IV PRN (20:20)
[2021-09-29 22:00] VITALS: BP 142/81
== END 2021-09-29 22:04 | disposition home or self-care (01) ==
LOC: M SDC 14:45
PROVIDERS: ATTEND Urology
DX: N20.0 Calculus of kidney (principal); I10 Essential (primary) hypertension; E78.5 Hyperlipidemia, unspecified; E03.9 Hypothyroidism, unspecified; M35.3 Polymyalgia rheumatica; K57.92 Diverticulitis of intestine, part unspecified, without perforation or abscess without bleeding; Z79.899 Other long term (current) drug therapy; Z79.52 Long term (current) use of systemic steroids; Z92.21 Personal history of antineoplastic chemotherapy; Z91.010 Allergy to peanuts
CPT/HCPCS: 52356; 74420; 82365; C1894; C2617; J0131; J0690; J1100; J1885; J2250; J2370; J2405; J3010; Q9961

== ENCOUNTER → 2021-11-12 | Outpatient (CLI) | payer MEDICARE ==
[~2021-11-12] MED LIST changes: +BACT800T5 PO; -LR 1,000 ML IV ONE
[2021-11-12 13:42] LABS: APPEARANCE, URINE HAZY (CLEAR); BACTERIA, URINE AUTO NEGATIVE (NEGATIVE); BILIRUBIN, URINE AUTO NEGATIVE (NEGATIVE); BLOOD, URINE BLOOD 2+ (NEGATIVE); COLOR, URINE YELLOW (YELLOW); GLUCOSE, URINE (UA) AUTO NEGATIVE (NEGATIVE); KETONE, URINE AUTO NEGATIVE (NEGATIVE); LEUKOCYTE ESTERASE, URINE AUTO 2+ (NEGATIVE); NITRITE, URINE AUTO NEGATIVE (NEGATIVE); PROTEIN, URINE AUTO 1+ mg/dL (NEGATIVE); RBC, URINE AUTO TNTC /HPF (0-3); SPECIFIC GRAVITY URINE AUTO 1.019 (1.002-1.035); SQUAMOUS EPITHELIAL CELL UR AU 10 /HPF (0-6); UROBILINOGEN, URINE AUTO 0.2 mg/dL (0.0-2.0); WBC, URINE AUTO 22 /HPF (0-3)
[2021-11-12 14:27] LABS: BLOOD UREA NITROGEN 22 MG/DL (7-18); CALCIUM LEVEL 9.2 MG/DL (8.8-10.2); CARBON DIOXIDE LEVEL 32 MEQ/L (21-32); CHLORIDE LEVEL 105 MEQ/L (98-107); CREATININE FOR GFR 0.84 MG/DL (0.55-1.30); GLOMERULAR FILTRATION RATE > 60.0 (>39); GLUCOSE, FASTING 95 MG/DL (70-100); POTASSIUM SERUM 4.7 MEQ/L (3.5-5.1); SODIUM LEVEL 140 MEQ/L (136-145)
== END ==
LOC: M ADAMS 10:20
PROVIDERS: ATTEND Physician Assistant
DX: N20.0 Calculus of kidney (principal)

== ENCOUNTER → 2021-12-02 | Outpatient (CLI) | payer MEDICARE | LOC: M RAD 08:16 | PROVIDERS: ATTEND Physician Assistant | DX: N20.0 Calculus of kidney (principal); N28.1 Cyst of kidney, acquired; Z96.0 Presence of urogenital implants ==

== ENCOUNTER → 2022-01-04 | Outpatient (CLI) | payer MEDICARE ==
[2022-01-04 17:10] LABS: APPEARANCE, URINE HAZY (CLEAR); BACTERIA, URINE AUTO 1+ (NEGATIVE); BILIRUBIN, URINE AUTO NEGATIVE (NEGATIVE); BLOOD, URINE BLOOD 3+ (NEGATIVE); COLOR, URINE YELLOW (YELLOW); GLUCOSE, URINE (UA) AUTO NEGATIVE (NEGATIVE); KETONE, URINE AUTO NEGATIVE (NEGATIVE); LEUKOCYTE ESTERASE, URINE AUTO NEGATIVE (NEGATIVE); MUCUS, URINE SMALL (NEGATIVE); NITRITE, URINE AUTO NEGATIVE (NEGATIVE); PROTEIN, URINE AUTO 2+ mg/dL (NEGATIVE); RBC, URINE AUTO TNTC /HPF (0-3); SPECIFIC GRAVITY URINE AUTO 1.021 (1.002-1.035); SQUAMOUS EPITHELIAL CELL UR AU 5 /HPF (0-6); UROBILINOGEN, URINE AUTO 0.2 mg/dL (0.0-2.0); WBC, URINE AUTO 8 /HPF (0-3)
[2022-01-04 17:24] LABS: BLOOD UREA NITROGEN 20 MG/DL (7-18); CALCIUM LEVEL 9.4 MG/DL (8.8-10.2); CARBON DIOXIDE LEVEL 31 MEQ/L (21-32); CHLORIDE LEVEL 110 MEQ/L (98-107); CREATININE FOR GFR 0.83 MG/DL (0.55-1.30); GLOMERULAR FILTRATION RATE > 60.0 (>39); GLUCOSE, FASTING 159 MG/DL (70-100); POTASSIUM SERUM 4.8 MEQ/L (3.5-5.1); SODIUM LEVEL 145 MEQ/L (136-145)
== END ==
LOC: M ADAMS 14:23
PROVIDERS: ATTEND Urology
DX: N20.0 Calculus of kidney (principal); R31.0 Gross hematuria

== ENCOUNTER → 2022-01-24 | Outpatient (REF) | payer MEDICARE | LOC: M SMT 16:45 | PROVIDERS: ATTEND Urology | DX: N39.0 Urinary tract infection, site not specified (principal) ==

== ENCOUNTER → 2022-04-18 | Outpatient (CLI) | payer MEDICARE ==
[2022-04-18 18:31] LABS: CALCIUM LEVEL 9.3 MG/DL (8.8-10.2); CREATININE FOR GFR 1.56 MG/DL (0.55-1.30); GLOMERULAR FILTRATION RATE 34.4 (>39); POTASSIUM SERUM 5.7 MEQ/L (3.5-5.1)
[2022-04-18 20:01] LABS: APPEARANCE, URINE MANUAL CLEAR (CLEAR); COLOR, URINE MANUAL YELLOW (YELLOW)
[2022-04-18 20:02] LABS: BILIRUBIN, URINE MANUAL NEGATIVE (NEGATIVE); BLOOD URINE MANUAL POSITIVE (NEGATIVE); GLUCOSE, URINE (UA) MANUAL NEGATIVE (NEGATIVE); KETONE, URINE MANUAL NEGATIVE (NEGATIVE); LEUKOCYTE ESTERASE, URINE MAN TRACE (NEGATIVE); NITRITE, URINE MANUAL NEGATIVE (NEGATIVE); PROTEIN, URINE MANUAL 1+ mg/dL (NEGATIVE); UROBILINOGEN, URINE MANUAL NORMAL (NORMAL)
[2022-04-18 20:59] LABS: BACTERIA, URINE MOD AMOUNT; HYALINE CAST, URINE NONE SEEN /lpf (0-1); SQUAMOUS EPITHELIAL CELL URINE LARGE AMOUNT /hpf (SMALL AMT); WBC, URINE 15-20 /hpf (0-3)
== END ==
LOC: M PLALAB 14:53
PROVIDERS: ATTEND Urology
DX: N20.0 Calculus of kidney (principal)

== ENCOUNTER → 2022-04-22 | Outpatient (CLI) | payer MEDICARE | LOC: M PLAIMG 09:33 | PROVIDERS: ATTEND Urology | DX: N13.2 Hydronephrosis with renal and ureteral calculous obstruction (principal); Z90.49 Acquired absence of other specified parts of digestive tract; N28.1 Cyst of kidney, acquired; K57.30 Diverticulosis of large intestine without perforation or abscess without bleeding ==

== ENCOUNTER → 2022-04-27 | Outpatient (CLI) | payer MEDICARE ==
[2022-04-27 13:16] LABS: HEMOGLOBIN 12.2 g/dl (12.0-15.5); MEAN CORPUSCULAR HGB CONC 31.3 g/dl (32.0-36.5); PLATELET COUNT, AUTOMATED 253 10^3/uL (150-450); RED BLOOD COUNT 3.94 10^6/uL (4.00-5.40); WHITE BLOOD COUNT 7.3 10^3/uL (4.0-10.0)
[2022-04-27 16:21] LABS: CALCIUM LEVEL 9.4 MG/DL (8.8-10.2); CREATININE FOR GFR 1.3 MG/DL (0.55-1.30); GLOMERULAR FILTRATION RATE 42.4 (>39); POTASSIUM SERUM 4.3 MEQ/L (3.5-5.1)
== END ==
LOC: M RAD 11:36
PROVIDERS: ATTEND Urology
DX: Z01.818 Encounter for other preprocedural examination (principal); N20.0 Calculus of kidney; N39.0 Urinary tract infection, site not specified

== ENCOUNTER → 2022-05-01 | Outpatient (CLI) | payer MEDICARE | LOC: M LABSMTC 10:29 | PROVIDERS: ATTEND Anesthesiology | DX: Z01.812 Encounter for preprocedural laboratory examination (principal); Z20.822 Contact with and (suspected) exposure to COVID-19 ==

== ENCOUNTER 2022-05-05 08:16 | Day surgery (SDC) | payer MEDICARE ==
[~2022-05-05] VITALS: Ht 160 cm; Wt 129.7 kg
[~2022-05-05 08:16] MED LIST changes: +ceFAZolin SOD 1 GM in D5W MINI-BAG PLUS 50 ML IV ONE; +ceFAZolin SOD 2 GM in IV 1 EA IV ONE
[2022-05-05] MEDS ORDERED: LR 1,000 ML IV SCH ×2 (09:25→13:45)
[2022-05-05] MEDS ORDERED: ISOVUE-300 61% 50ML VIAL As Ordered ONE (11:37)
[2022-05-05] MEDS ORDERED: ROCURONIUM BROMIDE 50 MG/5 ML VIAL As Ordered ONE (11:51)
[2022-05-05] MEDS ORDERED: dexameTHASONE 4 MG/ML 1ML VIAL (J1100 PER 1MG) As Ordered ONE (11:51)
[2022-05-05] MEDS ORDERED: ONDANSETRON 4MG 2ML VIAL As Ordered ONE (11:51)
[2022-05-05] MEDS ORDERED: SUGAMMADEX SODIUM 500 MG/5 ML VIAL (BRIDION) As Ordered ONE (11:51)
[2022-05-05] MEDS ORDERED: propofoL 200 MG/20 ML VIAL As Ordered ONE (11:51)
[2022-05-05] MEDS ORDERED: fentaNYL 100 MCG/2 ML INJECTION As Ordered ONE ×2 (11:53→13:18)
[2022-05-05] MEDS ORDERED: MIDAZOLAM INJ 2MG/2ML VIAL (J2250 PER 1MG) As Ordered ONE (12:10)
[2022-05-05] MEDS ORDERED: ePHEDrine SULFATE 25 MG/5 ML(5MG/ML) SYRINGE As Ordered ONE (12:22)
[2022-05-05] MEDS ORDERED: ACETAMINOPHEN 1000MG 100ML IV BTL (OFIRMEV) (J0131 PER 10MG) As Ordered ONE (12:25)
[2022-05-05] MEDS ORDERED: ONDANSETRON 4MG 2ML VIAL IV PRN (13:45)
[2022-05-05] MEDS ORDERED: oxyCODONE 5MG TAB PO PRN (13:45)
[2022-05-05] MEDS ORDERED: fentaNYL 100 MCG/2 ML INJECTION IV PRN (13:45)
[2022-05-05] MEDS ORDERED: FLOM0.4C39 PO (13:46)
[2022-05-05] MEDS ORDERED: PERCOCET 5MG/325MG TAB PO PRN (15:10)
[2022-05-05 15:55] VITALS: BP 130/60
== END 2022-05-05 16:27 | disposition home or self-care (01) ==
LOC: M SDC 08:16
PROVIDERS: ATTEND Urology
DX: N20.0 Calculus of kidney (principal); I10 Essential (primary) hypertension; E78.5 Hyperlipidemia, unspecified; E03.9 Hypothyroidism, unspecified; K44.9 Diaphragmatic hernia without obstruction or gangrene; M81.0 Age-related osteoporosis without current pathological fracture; Z79.899 Other long term (current) drug therapy; E66.01 Morbid (severe) obesity due to excess calories; K57.92 Diverticulitis of intestine, part unspecified, without perforation or abscess without bleeding; Z79.52 Long term (current) use of systemic steroids; Z91.010 Allergy to peanuts
CPT/HCPCS: 52356; 74420; 82365; C1769; C1894; C2617; J0131; J0690; J1100; J2250; J2405; J3010; Q9967

== ENCOUNTER → 2022-10-11 | Outpatient (CLI) | payer MEDICARE ==
[~2022-10-11] MED LIST changes: +FLOM0.4C39 PO; -ceFAZolin SOD 1 GM in D5W MINI-BAG PLUS 50 ML IV ONE; -ceFAZolin SOD 2 GM in IV 1 EA IV ONE
== END ==
LOC: M LABDRWAD 11:21
PROVIDERS: ATTEND Physician Assistant
DX: R79.89 Other specified abnormal findings of blood chemistry (principal); Z79.52 Long term (current) use of systemic steroids; M35.3 Polymyalgia rheumatica

== ENCOUNTER → 2022-10-26 | Outpatient (CLI) | payer MEDICARE | LOC: M WHC 06:46 | PROVIDERS: ATTEND Physician Assistant | DX: Z12.31 Encounter for screening mammogram for malignant neoplasm of breast (principal) ==

== ENCOUNTER → 2022-11-10 | Outpatient (CLI) | payer MEDICARE | LOC: M WHC 11:24 | PROVIDERS: ATTEND Urology | DX: N20.0 Calculus of kidney (principal) ==

== ENCOUNTER → 2023-01-05 | Outpatient (CLI) | payer MEDICARE | LOC: M WHC 10:32 | PROVIDERS: ATTEND Physician Assistant | DX: Z13.820 Encounter for screening for osteoporosis (principal); Z79.52 Long term (current) use of systemic steroids ==

== ENCOUNTER → 2023-01-05 | Outpatient (REF) | payer MEDICARE | LOC: M SFHCADAM 12:23 | PROVIDERS: ATTEND Physician Assistant | DX: E03.9 Hypothyroidism, unspecified (principal); I10 Essential (primary) hypertension; M35.3 Polymyalgia rheumatica; E78.5 Hyperlipidemia, unspecified; D36.9 Benign neoplasm, unspecified site; Z13.820 Encounter for screening for osteoporosis; Z79.52 Long term (current) use of systemic steroids; K59.00 Constipation, unspecified ==

== ENCOUNTER → 2023-01-10 | Outpatient (REF) | payer MEDICARE | LOC: CANPREREF → M SFHCADAM 08:54 | PROVIDERS: ATTEND Physician Assistant | DX: Z53.9 Procedure and treatment not carried out, unspecified reason (principal) ==

== ENCOUNTER → 2023-01-12 | Outpatient (REF) | payer MEDICARE ==
[2023-01-12 14:26] LABS: THYROID STIMULATING HORMONE 1.387 uIU/ML (0.55-4.78)
[2023-01-12 14:29] LABS: VITAMIN B12 LEVEL 564 PG/ML (211-911)
[2023-01-12 14:30] LABS: FOLATE > 24.0 NG/ML (>5.4)
[2023-01-12 14:31] LABS: TOTAL 25(OH) VITAMIN D 38.5 NG/ML (20.0-100.0)
== END ==
LOC: M SFHCADAM 09:29
PROVIDERS: ATTEND Physician Assistant
DX: I10 Essential (primary) hypertension (principal); E03.9 Hypothyroidism, unspecified; M35.3 Polymyalgia rheumatica; E78.5 Hyperlipidemia, unspecified; D36.9 Benign neoplasm, unspecified site; Z13.820 Encounter for screening for osteoporosis; Z79.52 Long term (current) use of systemic steroids; K59.00 Constipation, unspecified

== ENCOUNTER → 2023-02-28 | Outpatient (CLI) | payer MEDICARE | LOC: M WHC 09:31 | PROVIDERS: ATTEND Physician Assistant | DX: Z13.820 Encounter for screening for osteoporosis (principal); Z79.52 Long term (current) use of systemic steroids ==

== ENCOUNTER → 2023-07-11 | Outpatient (REF) | payer MEDICARE ==
[~2023-07-11] MED LIST changes: +POLY510P14 PO
[2023-07-11 16:33] LABS: ALBUMIN 3.2 G/DL (3.2-5.2); ALKALINE PHOSPHATASE 58 U/L (46-116); ALT/SGPT 19 U/L (7.0-40); AST/SGOT 17 U/L (<34); BILIRUBIN,TOTAL 0.4 MG/DL (0.3-1.2); BLOOD UREA NITROGEN 17 MG/DL (9-23); CALCIUM LEVEL 9.1 MG/DL (8.3-10.6); CARBON DIOXIDE LEVEL 32 MMOL/L (20-31); CHLORIDE LEVEL 107 MMOL/L (98-107); CHOLESTEROL LEVEL 199 MG/DL (<200); CHOLESTEROL RISK RATIO 4.28 (<5); CREATININE FOR GFR 0.76 MG/DL (0.55-1.30); GLOMERULAR FILTRATION RATE > 60.0 (>39); GLUCOSE, FASTING 138 MG/DL (74-106); HDL CHOLESTEROL 46.4 MG/DL (>40); NON-HDL-C 152.6 MG/DL; POTASSIUM SERUM 4.7 MMOL/L (3.5-5.1); SODIUM LEVEL 142 MMOL/L (136-145); TOTAL PROTEIN 6.6 G/DL (5.7-8.2); TRIGLYCERIDES LEVEL 198 MG/DL (<150)
== END ==
LOC: M SFHCADAM 12:11
PROVIDERS: ATTEND Physician Assistant
DX: E03.9 Hypothyroidism, unspecified (principal); I10 Essential (primary) hypertension; M35.3 Polymyalgia rheumatica; E78.5 Hyperlipidemia, unspecified

== ENCOUNTER 2023-07-20 11:39 | Day surgery (SDC) | payer MEDICARE ==
[~2023-07-20] VITALS: Ht 157.5 cm; Wt 122.7 kg
[~2023-07-20 11:39] MED LIST changes: +IRBE75TA11 PO; -IRBE75TA4 PO; +NS 1,000 ML IV ONE; +propofoL 200 MG/20 ML VIAL As Ordered ONE
[2023-07-20 13:14] VITALS: TEMP 96.7
[2023-07-20 13:31] VITALS: BP 127/59; O2SAT 99
== END 2023-07-20 13:36 | disposition home or self-care (01) ==
LOC: M OPP 11:39
PROVIDERS: ATTEND Internal Medicine Gastroenterology
DX: Z86.010 Personal history of colon polyps (principal); K64.0 First degree hemorrhoids; K57.30 Diverticulosis of large intestine without perforation or abscess without bleeding; K59.04 Chronic idiopathic constipation; Z79.52 Long term (current) use of systemic steroids; Z79.890 Hormone replacement therapy; Z79.891 Long term (current) use of opiate analgesic; Z79.899 Other long term (current) drug therapy; Z91.018 Allergy to other foods

== ENCOUNTER → 2023-11-14 | Outpatient (CLI) | payer MEDICARE ==
[~2023-11-14] MED LIST changes: -NS 1,000 ML IV ONE; -propofoL 200 MG/20 ML VIAL As Ordered ONE
== END ==
LOC: M RAD 13:08
PROVIDERS: ATTEND Urology
DX: Z87.442 Personal history of urinary calculi (principal); N28.1 Cyst of kidney, acquired

== ENCOUNTER → 2024-01-18 | Outpatient (REF) | payer MEDICARE | LOC: M SFHCADAM 12:15 | PROVIDERS: ATTEND Physician Assistant | DX: E03.9 Hypothyroidism, unspecified (principal); I10 Essential (primary) hypertension; M35.3 Polymyalgia rheumatica; E78.5 Hyperlipidemia, unspecified; Z53.20 Procedure and treatment not carried out because of patient's decision for unspecified reasons; Z79.52 Long term (current) use of systemic steroids; D75.89 Other specified diseases of blood and blood-forming organs ==

== ENCOUNTER → 2024-01-22 | Outpatient (CLI) | payer MEDICARE ==
[2024-01-22 14:32] LABS: HEMATOCRIT 38.6 % (36.0-47.0); HEMOGLOBIN 12.1 g/dl (12.0-15.5); MEAN CORPUSCULAR HEMOGLOBIN 31.6 pg (27.0-33.0); MEAN CORPUSCULAR HGB CONC 31.3 g/dl (32.0-36.5); MEAN CORPUSCULAR VOLUME 100.8 fl (80.0-96.0); PLATELET COUNT, AUTOMATED 260 10^3/uL (150-450); RED BLOOD COUNT 3.83 10^6/uL (4.00-5.40); WHITE BLOOD COUNT 8.7 10^3/uL (4.0-10.0)
[2024-01-22 14:39] LABS: ERYTHROCYTE SEDIMENTATION RATE 77 mm/hr (0-30)
[2024-01-22 15:02] LABS: ALBUMIN 3.3 G/DL (3.2-5.2); ALKALINE PHOSPHATASE 64 U/L (46-116); ALT/SGPT 17 U/L (7.0-40); AST/SGOT 13 U/L (<34); BILIRUBIN,TOTAL 0.6 MG/DL (0.3-1.2); BLOOD UREA NITROGEN 21 MG/DL (9-23); CALCIUM LEVEL 9.3 MG/DL (8.3-10.6); CARBON DIOXIDE LEVEL 30 MMOL/L (20-31); CHLORIDE LEVEL 108 MMOL/L (98-107); CHOLESTEROL LEVEL 169 MG/DL (<200); CHOLESTEROL RISK RATIO 4.02 (<5); CREATININE FOR GFR 0.86 MG/DL (0.55-1.30); CREATININE, URINE 56.5 MG/DL; GLOMERULAR FILTRATION RATE > 60.0 (>39); GLUCOSE, FASTING 103 MG/DL (74-106); LDL CHOLESTEROL 95.4 MG/DL (<100); POTASSIUM SERUM 4.9 MMOL/L (3.5-5.1); SODIUM LEVEL 143 MMOL/L (136-145); TOTAL PROTEIN 6.4 G/DL (5.7-8.2); TRIGLYCERIDES LEVEL 158 MG/DL (<150)
[2024-01-22 15:03] LABS: MALB URINE SIEMENS < 3.0 MG/L; MAU/CREAT RATIO 5.3 MCG/MG (0.0-30.0)
[2024-01-22 15:05] LABS: THYROID STIMULATING HORMONE 1.078 uIU/ML (0.55-4.78)
== END ==
LOC: M PLALAB 09:36
PROVIDERS: ATTEND Physician Assistant
DX: I10 Essential (primary) hypertension (principal); E03.9 Hypothyroidism, unspecified; M35.3 Polymyalgia rheumatica; E78.5 Hyperlipidemia, unspecified; Z79.52 Long term (current) use of systemic steroids; D75.89 Other specified diseases of blood and blood-forming organs

== ENCOUNTER → 2024-02-19 | Outpatient (CLI) | payer MEDICARE | LOC: M SOG 07:54 | PROVIDERS: ATTEND Physician Assistant | DX: M54.50 Low back pain, unspecified (principal); M51.36 Other intervertebral disc degeneration, lumbar region; M85.88 Other specified disorders of bone density and structure, other site ==

== ENCOUNTER → 2024-05-10 | Outpatient (CLI) | payer MEDICARE | LOC: M WHC 11:30 | PROVIDERS: ATTEND Physician Assistant | DX: Z12.31 Encounter for screening mammogram for malignant neoplasm of breast (principal); R92.313 Mammographic fatty tissue density, bilateral breasts ==

== ENCOUNTER 2024-07-04 11:06 | Emergency (ER) | payer MEDICARE ==
[~2024-07-04] VITALS: Ht 157.5 cm; Wt 130.4 kg
[2024-07-04 13:29] LABS: KETONE, URINE AUTO RFX NEGATIVE (NEGATIVE); MUCUS, URINE RFX SMALL (NEGATIVE)
[2024-07-04 13:33] LABS: LEUKOCYTE ESTERASE UR AUTO RFX TRACE (NEGATIVE)
[2024-07-04] MEDS: methocarbamoL 500 MG TAB PO ONE (13:47)
[2024-07-04] MEDS ORDERED: NITR100C3 PO (14:29)
[2024-07-04] MEDS ORDERED: METH-1164 PO (14:29)
[2024-07-04 14:46] VITALS: BP 162/67; TEMP 97.5; O2SAT 96
== END 2024-07-04 14:42 | disposition home or self-care (01) ==
LOC: M ED 11:06
DX: M62.830 Muscle spasm of back (principal); N39.0 Urinary tract infection, site not specified; I10 Essential (primary) hypertension; M51.360 Other intervertebral disc degeneration, lumbar region with discogenic back pain only; J30.2 Other seasonal allergic rhinitis; Z79.899 Other long term (current) drug therapy; Z91.018 Allergy to other foods

== ENCOUNTER → 2024-07-08 | Outpatient (CLI) | payer MEDICARE ==
[~2024-07-08] MED LIST changes: +METH-1164 PO; +NITR100C3 PO
== END ==
LOC: M WHC 10:00
PROVIDERS: ATTEND Physician Assistant
DX: R10.9 Unspecified abdominal pain (principal); N28.1 Cyst of kidney, acquired; N13.30 Unspecified hydronephrosis

== ENCOUNTER → 2024-07-08 | Outpatient (REF) | payer MEDICARE | LOC: M SFHCADAM 12:42 | PROVIDERS: ATTEND Physician Assistant | DX: M54.50 Low back pain, unspecified (principal); Z79.899 Other long term (current) drug therapy ==

== ENCOUNTER → 2024-08-14 | Outpatient (CLI) | payer MEDICARE ==
[2024-08-14 15:22] LABS: BLOOD UREA NITROGEN 19 MG/DL (9-23); CALCIUM LEVEL 9.3 MG/DL (8.3-10.6); CARBON DIOXIDE LEVEL 29 MMOL/L (20-31); CHLORIDE LEVEL 107 MMOL/L (98-107); CREATININE FOR GFR 0.84 MG/DL (0.55-1.30); GLOMERULAR FILTRATION RATE > 60.0 (>39); GLUCOSE, FASTING 116 MG/DL (74-106); POTASSIUM SERUM 4.6 MMOL/L (3.5-5.1); SODIUM LEVEL 145 MMOL/L (136-145)
== END ==
LOC: M PLALAB 11:25
PROVIDERS: ATTEND Physician Assistant
DX: I10 Essential (primary) hypertension (principal)

== ENCOUNTER → 2024-08-19 | Outpatient (CLI) | payer MEDICARE ==
[~2024-08-19] MED LIST changes: +ISOVUE-370 76% 100ML VIAL ONE
== END ==
LOC: M PLAIMG 09:52
PROVIDERS: ATTEND Physician Assistant
DX: N28.1 Cyst of kidney, acquired (principal); K57.30 Diverticulosis of large intestine without perforation or abscess without bleeding; D73.9 Disease of spleen, unspecified; Z90.49 Acquired absence of other specified parts of digestive tract
CPT/HCPCS: 74178; Q9967

== ENCOUNTER → 2024-09-02 | Outpatient (REF) | payer MEDICARE ==
[~2024-09-02] MED LIST changes: -ISOVUE-370 76% 100ML VIAL ONE
== END ==
LOC: M SFHCDERM 17:58
PROVIDERS: ATTEND Physician Assistant
DX: C44.311 Basal cell carcinoma of skin of nose (principal); L73.9 Follicular disorder, unspecified

== ENCOUNTER → 2024-11-13 | Outpatient (CLI) | payer MEDICARE ==
[~2024-11-13] MED LIST changes: -FLOM0.4C39 PO; +PRED-1142 PO; -PRED1TABL PO; +TAMS-18 PO
== END ==
LOC: M WHC 10:07
PROVIDERS: ATTEND Urology
DX: N20.0 Calculus of kidney (principal)

== ENCOUNTER → 2025-05-12 | Outpatient (CLI) | payer MEDICARE | LOC: M WHC 16:18 | PROVIDERS: ATTEND Physician Assistant | DX: Z12.31 Encounter for screening mammogram for malignant neoplasm of breast (principal) ==